=== PATIENT | male | born 2000 | race Caucasian/White ===

== ENCOUNTER 2021-03-09 20:22 | Emergency (ER) | payer BC, OTHER ==
[2021-03-09] MEDS ORDERED: CEPHALEXIN500 M1 PO (21:15)
[2021-03-09] MEDS ORDERED: BACTRIM DS TAB1 EACH PO (21:15)
== END 2021-03-09 21:35 | disposition home or self-care (01) ==
LOC: ER1 20:22
DX: L03.311 Cellulitis of abdominal wall (principal)
CPT/HCPCS: 99283